=== PATIENT | male | born 1980 | race Caucasian/White ===

== ENCOUNTER 2024-10-05 13:42 | Outpatient (CLI) | payer BC | END 2024-10-05 13:43 | disposition home or self-care (01) | LOC: SCSMRI 13:42 | PROVIDERS: ATTEND Family Medicine Sports Medicine | DX: M85.60 Other cyst of bone, unspecified site (principal); M67.813 Other specified disorders of tendon, right shoulder; S56.511A Strain of other extensor muscle, fascia and tendon at forearm level, right arm, initial encounter ==